=== PATIENT | female | born 1990 | race Caucasian/White ===

== ENCOUNTER 2016-11-17 20:00 | Emergency (ER) | payer BC, OTHER ==
[~2016-11-17] VITALS: Ht 160 cm; Wt 74.7 kg
[~2016-11-17 20:00] MED LIST: ANAPROX DS550 M1 PO; NAPROSYN500 MG PO; NOHOMEMEDS; VICODIN 5-3001 EACH PO
[2016-11-17 20:16] VITALS: BP 134/82
[2016-11-17 20:36] LABS: ADD MIUA? YES; BILIRUBIN NEGATIVE; BLOOD MODERATE; COLOR YELLOW ((YELLOW)); GLUCOSE (STRIP) NEGATIVE; KETONES NEGATIVE; LEUKOCYTES NEGATIVE; NITRITE NEGATIVE; PROTEIN (STRIP) 30; SPECIFIC GRAVITY 1.019 (1.000-1.030); UROBILINOGEN 0.2 MG/DL (0.2-1.0)
[2016-11-17 20:40] LABS: BACTERIA RARE /HPF; EPITHELIAL CELLS 2+ /HPF; MUCUS TRACE /LPF; RED BLOOD CELLS 0-5 /HPF (0-5); UCUL ADDED? NO; WHITE BLOOD CELLS 0-5 /HPF (0-5)
[2016-11-17 20:41] LABS: HEMATOCRIT 40.2 % (36.0-46.0); MCH 30.1 PG (29.0-34.0); MCHC 33.6 G/DL (30.0-36.0); MCV 89.5 FL (83-99); MEAN PLAT.VOLUME 8.6 uM^3 (9.5-12.4); PLATELET COUNT 337 K/uL (156-360); RBC DIS.WIDTH-CV 11.7 % (11.8-14.6); RBC DIS.WIDTH-SD 37.8 % (39-53); RED BLOOD COUNT 4.49 M/uL (3.80-5.20); WHITE BLOOD COUNT 14.2 K/uL (4.1-10.2)
[2016-11-17 20:58] LABS: CHLORIDE 104 mEq/L (99-109); POTASSIUM 3.5 mEq/L (3.7-5.4); SODIUM 139 mEq/L (136-147)
[2016-11-17 21:00] LABS: GLUCOSE 94 mg/dL (70-99)
[2016-11-17 21:01] LABS: ANION GAP 10 MEQ/L (2-14)
[2016-11-17 21:02] LABS: TOTAL BILIRUBIN 0.9 mg/dL (0.0-1.0)
[2016-11-17 21:03] LABS: ALKALINE PHOSPHATASE 64 IU/L (3-129)
[2016-11-17 21:04] LABS: GFR ESTIMATE (CALCULATED) > 59 mL/min/
[2016-11-17 21:05] LABS: UREA NITROGEN (BUN) 8 mg/dL (9-23)
[2016-11-17 21:12] LABS: QUANTITATIVE HCG < 4.0 MIU/ML
== END 2016-11-17 21:03 | disposition left against medical advice (07) ==
LOC: EME 20:00
DX: R32 Unspecified urinary incontinence (principal); N93.9 Abnormal uterine and vaginal bleeding, unspecified; R14.0 Abdominal distension (gaseous); Z53.21 Procedure and treatment not carried out due to patient leaving prior to being seen by health care provider
CPT/HCPCS: 80053; 81003; 84702; 85027